=== PATIENT | female | born 1975 ===

== ENCOUNTER 2017-02-15 09:09 | Emergency (ER) | payer SELFPAY ==
[2017-02-15 09:35] VITALS: BP 115/48
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
--- NOTE | 2017-02-15 11:36 | RAD ---
INDICATION: Right elbow injury COMPARISON: None TECHNIQUE: AP, lateral, and oblique views were obtained. FINDINGS: The bony structures, joint spaces, and soft tissues are normal for age. IMPRESSION: NEGATIVE EXAMINATION.
--- NOTE | 2017-02-15 11:38 | RAD ---
INDICATION: Right shoulder injury COMPARISON: None TECHNIQUE: Routine frontal, Y and axial views were obtained. FINDINGS: The bony structures, joint spaces, and soft tissues are normal for age. IMPRESSION: NEGATIVE EXAMINATION.
--- NOTE | 2017-02-15 11:38 | RAD ---
INDICATION: Neck pain COMPARISON: None TECHNIQUE: Routine five-view imaging was performed FINDINGS: Bones: There are no acute bony findings. There are no significant osteoarthritic findings. Craniocervical junction: The odontoid and atlantodental interval are normal. Alignment: Normal Disc spaces: The disc spaces are well-maintained Soft tissues: The prevertebral soft tissues are normal. IMPRESSION: NEGATIVE EXAMINATION
== END 2017-02-15 12:11 | disposition home or self-care (01) ==
LOC: UCEAST 09:09
DX: M25.511 Pain in right shoulder (principal); M54.2 Cervicalgia; M62.838 Other muscle spasm
CPT/HCPCS: 72050; 99212; G0463

== ENCOUNTER 2017-02-20 09:57 | Emergency (ER) | payer OTHER ==
[2017-02-20 13:42] LABS: ALT 11 U/L (7-52); AST 13 U/L (13-39); Alkaline Phosphatase 33 U/L (34-104); Anion Gap 6 mmol/L (2-11); BUN/Creatinine Ratio 17.2 (8-20); Blood Urea Nitrogen 11 mg/dL (6-24); C Reactive Protein < 1.00 mg/L (< 5.00); CO2 Carbon Dioxide 25 mmol/L (22-32); Calcium 9.5 mg/dL (8.6-10.3); Chloride 104 mmol/L (101-111); EGFR African American 132.2 (>60); EGFR Non-African American 102.8 (>60); Globulin 3.1 g/dL (2-4); Glucose 95 mg/dL (70-100); Potassium 3.6 mmol/L (3.5-5.0); Sodium 135 mmol/L (133-145); Total Protein 7.1 g/dL (6.4-8.9)
[2017-02-20 14:25] LABS: Hematocrit 35 % (35-47); Hemoglobin 11.6 g/dl (12.0-16.0); Mean Corpuscular HGB Conc 34 g/dl (31-36); Mean Corpuscular Hemoglobin 33 pg (27-31); Mean Corpuscular Volume 97 fL (80-97); Mean Platelet Volume 9 um3 (7.4-10.4); Red Blood Count 3.56 10^6/ul (4.0-5.4); Red Cell Distribution Width 13 % (10.5-15); White Blood Count 7.2 10^3/ul (3.5-10.8)
--- NOTE | 2017-02-20 14:44 | ED ---
Nausea/Vomiting/Diarrhea HPI - HPI Summary HPI Summary: 41 female presents to ED with complaints of possibly ingesting calcium hydroxide , trace amounts around 0700 today. Patient states she was applying it to her corn and strained the corn after however never rinsed/wash corn after that. Patient states she used about 1 tablespoon of 95% concentration calcium hydroxide and 2 tablespoons of water to apply on corn. States she now feels nauseous and has a headache. Denies abdominal pain and vomiting. No other complaints. Is anxious. No PMHx. No medications. - History of Current Complaint Chief Complaint: EDGeneral Stated Complaint: INGESTED HARMFUL SUBSTANCE/NAUSEA/HEADACHE Time Seen by Provider: 02/20/17 10:20 Hx Obtained From: Patient Hx Last Menstrual Period: 01/22/17 Onset/Duration: Sudden Onset Severity Initially: Mild Severity Currently: Mild Pain Intensity: 0 Pain Scale Used: 0-10 Numeric Aggravating Factor(s): Nothing Alleviating Factor(s): Nothing - Allergies/Home Medications Allergies/Adverse Reactions: Allergies Allergy/AdvReac Type Severity Reaction Status Date / Time No Known Allergies Allergy Verified 02/15/17 09:35 PMH/Surg Hx/FS Hx/Imm Hx Endocrine/Hematology History: Denies: Hx Diabetes Cardiovascular History: Denies: Hx Hypertension Respiratory History: Denies: Hx Asthma - Surgical History Surgery Procedure, Year, and Place: none - Immunization History Immunizations Up to Date: Yes Infectious Disease History: No Infectious Disease History: Denies: Traveled Outside the [place] in Last 30 Days - Family History Known Family History: Positive: None - Social History Alcohol Use: None Substance Use Type: Reports: None Smoking Status (MU): Never Smoked Tobacco Review of Systems Constitutional: Negative Cardiovascular: Negative Respiratory: Negative Positive: Nausea Positive: Headache All Other Systems Reviewed And Are Negative: Yes Physical Exam Triage Information Reviewed: Yes Vital Signs On Initial Exam: Initial Vitals Temp Pulse Resp BP Pulse Ox 98.3 F 60 18 96/56 100 02/20/17 10:11 02/20/17 10:11 02/20/17 10:11 02/20/17 10:11 02/20/17 10:11 Vital Signs Reviewed: Yes Appearance: Positive: Well-Appearing - anxious, No Pain Distress, Well-Nourished Skin: Positive: Warm, Skin Color Reflects Adequate Perfusion, Dry. Negative: Jaundiced Eyes: Positive: Normal ENT: Positive: Hearing grossly normal Respiratory/Lung Sounds: Positive: Clear to Auscultation, Breath Sounds Present. Negative: Decreased Breath Sounds, Rales, Rhonchi, Wheezes Cardiovascular: Positive: Normal, RRR, Pulses are Symmetrical in both Upper and Lower Extremities. Negative: Murmur, Tachycardia Abdomen Description: Positive: Nontender, No Organomegaly, Soft. Negative: Bruit, Distended, Guarding, Peritoneal Signs Bowel Sounds: Positive: Present Musculoskeletal: Positive: Normal Neurological: Positive: Normal, Sensory/Motor Intact, Alert, Oriented to Person Place, Time, NV Bundle Intact Distally, Normal Gait - [place] Coma Scale Best Eye Response: 4 - Spontaneous Best Motor Response: 6 - Obeys Commands Best Verbal Response: 5 - Oriented Coma Scale Total: 15 Diagnostics - Vital Signs Vital Signs Temp Pulse Resp BP Pulse Ox 02/20/17 10:11 98.3 F 60 18 96/56 100 - Laboratory Lab Results: Lab Results 02/20/17 02/20/17 02/20/17 Range/Units 13:08 13:08 13:08 WBC 7.2 (3.5-10.8) 10^3/ul RBC 3.56 L (4.0-5.4) 10^6/ul Hgb 11.6 L (12.0-16.0) g/dl Hct 35 (35-47) % MCV 97 (80-97) fL MCH 33 H (27-31) pg MCHC 34 (31-36) g/dl RDW 13 (10.5-15) % Plt Count 194 (150-450) 10^3/ul MPV 9 (7.4-10.4) um3 Sodium 135 (133-145) mmol/L Potassium 3.6 (3.5-5.0) mmol/L Chloride 104 (101-111) mmol/L Carbon Dioxide 25 (22-32) mmol/L Anion Gap 6 (2-11) mmol/L BUN 11 (6-24) mg/dL Creatinine 0.64 (0.51-0.95) mg/dL Est GFR ( Amer) 132.2 (>60) Est GFR (Non-Af Amer) 102.8 (>60) BUN/Creatinine Ratio 17.2 (8-20) Glucose 95 (70-100) mg/dL Lactic Acid 0.6 (0.5-2.0) mmol/L Calcium 9.5 (8.6-10.3) mg/dL Total Bilirubin 0.70 (0.2-1.0) mg/dL AST 13 (13-39) U/L ALT 11 (7-52) U/L Alkaline Phosphatase 33 L (34-104) U/L C-Reactive Protein < 1.00 (< 5.00) mg/L Total Protein 7.1 (6.4-8.9) g/dL Albumin 4.0 (3.2-5.2) g/dL Globulin 3.1 (2-4) g/dL Albumin/Globulin Ratio 1.3 (1-3) Result Diagrams: 02/20/17 13:08 02/20/17 13:08 Lab Statement: Any lab studies that have been ordered have been reviewed, and results considered in the medical decision making process. Naus/Vom/Diarrhea Course/Dx - Course Course Of Treatment: poison control was consulted who stated patient should seek GI consult. Labs were obtained. Patient did not want any medication for nausea of headache. Attempted to obtain chest and abdomen xray due to Dr Trujillo request and to rule out STS however patient refused. Also discussed possibilty of endoscopy and inserting IV patient also refused that. Dr Trujillo consulted patient and explained condition and worry of alkaline poisoning disrupting stomach lining however patient refused observation and further testing/treatment. Stated she felt fine and would go home and rest bowels. Patient ended up signing AMA. - Differential Dx/Diagnosis Differential Diagnoses - Female: Other - soft tissue swelling, gastroenteritis, alkaline poisoning, nausea, headache Provider Diagnoses: alkaline poisoning Condition At Discharge: Stable - Physician Notification/Consults Discussed Case/Management/Disposition Of Patient With: Verito mirza and Dr Ronnie barnes obtain labs and xrays Time Discussed With Above Provider: 12:30 Instructed by Provider To: MD Will See In ED - Dr Trujillo came down at 1:10pm to consult patient and patient decided to sign out ama Discharge - Discharge Plan Condition: Stable Disposition: AGAINST MEDICAL ADVICE Referrals: No Primary Care Phys,NOPCP [Primary Care Provider] -
[2017-02-20 15:05] VITALS: BP 0/0
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
== END 2017-02-20 15:04 | disposition left against medical advice (07) ==
LOC: ED 09:57
DX: T54.3X1A Toxic effect of corrosive alkalis and alkali-like substances, accidental (unintentional), initial encounter (principal); R11.0 Nausea; R51 Headache; Y92.9 Unspecified place or not applicable
CPT/HCPCS: 36415; 80053; 83605; 85027; 86140; 99282